=== PATIENT | male | born 1990 | race Caucasian/White ===

== ENCOUNTER 2017-04-28 15:19 | Emergency (ER) | payer SELFPAY ==
[~2017-04-28] VITALS: Ht 180.3 cm; Wt 74.0 kg
[2017-04-28 15:24] VITALS: BP 119/78; PULSE 72; RESP 14; TEMP 98.2; O2SAT 98
--- NOTE | 2017-04-28 15:47 | PD ---
HPI Chief Complaint: Psychiatric Symptoms Time Seen by Provider: 15:45 Travel History International Travel<30 days: No Contact w/Intl Traveler<30days: No Traveled to known affect area: No History of Present Illness HPI 27-year-old male presents to the emergency department for psychiatric evaluation. Patient presents voluntarily. He reports history of bipolar disorder, schizophrenia. He states he is not currently on any psychiatric medications. [place] He is currently homeless. He states he is hearing voices and having hallucinations. He states he has thoughts of hurting himself or thoughts of danger. He denies any definite plan of suicide. He has no homicidal ideation. Has no other complaints at this time. He reports no other chronic medical problems and takes no prescribed medications. He denies any history of illicit drug use. PFSH Past Medical History Bipolar Disorder: Yes Gastrointestinal Disorders: No Genitourinary: No Musculoskeletal: No Psychiatric: Yes (pt was under the care of Dr. Amado for 10yrs but stopped in 2014) Respiratory: No Schizophrenia: Yes Social History Alcohol Use: No Tobacco Use: Yes Substance Use: Yes Allergies-Medications (Allergen,Severity, Reaction): Coded Allergies: Ceclor (Verified Allergy, Mild, Hives, 02/17/16) Reported Meds & Prescriptions Reported Meds & Active Scripts Active No Active Prescriptions or Reported Medications Review of Systems Except as stated in HPI: all other systems reviewed are Neg Physical Exam Narrative GENERAL: Well-nourished, well-developed male patient, ambulatory. Afebrile. SKIN: Focused skin assessment warm/dry. HEAD: Normocephalic. Atraumatic. EYES: No scleral icterus. No injection or drainage. NECK: Supple, trachea midline. No JVD or lymphadenopathy. CARDIOVASCULAR: Regular rate and rhythm without murmurs, gallops, or rubs. RESPIRATORY: Breath sounds equal bilaterally. No accessory muscle use. Lungs sounds are clear to auscultation. GASTROINTESTINAL: Abdomen soft, non-tender, nondistended. MUSCULOSKELETAL: No cyanosis, or edema. PSYCHIATRIC: No delusional thought processes. No hallucinations. Data Data Last Documented VS Vital Signs Date Time Temp Pulse Resp B/P Pulse Ox O2 Delivery O2 Flow Rate FiO2 04/28/17 18:26 98.6 88 18 130/72 100 Orders Complete Blood Count With Diff (04/28/17 15:43) Comprehensive Metabolic Panel (04/28/17 15:43) Psych Screen (04/28/17 15:43) Drug Screen, Random Urine (04/28/17 15:43) Alcohol (Ethanol) (04/28/17 15:43) Potassium Chloride (Kcl) (04/28/17 16:45) Labs Laboratory Tests Test 04/28/17 15:55 White Blood Count 12.7 TH/MM3 Red Blood Count 4.58 MIL/MM3 Hemoglobin 13.5 GM/DL Hematocrit 40.2 % Mean Corpuscular Volume 87.8 FL Mean Corpuscular Hemoglobin 29.5 PG Mean Corpuscular Hemoglobin 33.6 % Concent Red Cell Distribution Width 12.9 % Platelet Count 200 TH/MM3 Mean Platelet Volume 9.4 FL Neutrophils (%) (Auto) 78.5 % Lymphocytes (%) (Auto) 13.1 % Monocytes (%) (Auto) 7.0 % Eosinophils (%) (Auto) 1.0 % Basophils (%) (Auto) 0.4 % Neutrophils # (Auto) 9.9 TH/MM3 Lymphocytes # (Auto) 1.7 TH/MM3 Monocytes # (Auto) 0.9 TH/MM3 Eosinophils # (Auto) 0.1 TH/MM3 Basophils # (Auto) 0.0 TH/MM3 CBC Comment DIFF FINAL Differential Comment Sodium Level 138 MEQ/L Potassium Level 3.0 MEQ/L Chloride Level 101 MEQ/L Carbon Dioxide Level 22.3 MEQ/L Anion Gap 15 MEQ/L Blood Urea Nitrogen 21 MG/DL Creatinine 0.86 MG/DL Estimat Glomerular Filtration 108 ML/MIN Rate Random Glucose 57 MG/DL Calcium Level 9.1 MG/DL Total Bilirubin 1.4 MG/DL Aspartate Amino Transf 50 U/L (AST/SGOT) Alanine Aminotransferase 30 U/L (ALT/SGPT) Alkaline Phosphatase 85 U/L Total Protein 7.5 GM/DL Albumin 4.8 GM/DL Urine Opiates Screen NEG Urine Barbiturates Screen NEG Urine Amphetamines Screen NEG Urine Benzodiazepines Screen NEG Urine Cocaine Screen NEG Urine Cannabinoids Screen NEG Ethyl Alcohol Level LESS THAN 3 MG/DL MDM Medical Decision Making Medical Screen Exam Complete: Yes Emergency Medical Condition: Yes Medical Record Reviewed: Yes Differential Diagnosis Bipolar disorder versus schizophrenia versus depression versus anxiety versus malingering Narrative Course 27-year-old male presents to the emergency department for psychiatric evaluation. He has no medical complaints at this time. CBC, CMP, alcohol level , urine drug screen are ordered and pending. CBC shows leukocytosis of 12.7, likely stress reaction. CMP shows hypokalemia at 3.0. Alcohol level is less than 3. UDS is negative. Patient is given potassium 40 meq po. The patient is medically cleared for psychiatric screening and disposition. Diagnosis Primary Impression: Schizophrenia Qualified Code: F20.9 - Schizophrenia, unspecified type Additional Instructions: Patient is medically cleared for psychiatric screening and disposition. Scripts No Active Prescriptions or Reported Meds Condition: Lorenza Torres Apr 28, 2017 15:47
[2017-04-28 16:07] LABS: AUTOMATED NEUTROPHIL # 9.9 TH/MM3 (1.8-7.7); BASOPHIL % 0.4 % (0.0-2.0); EOSINOPHIL # 0.1 TH/MM3 (0-0.4); HEMATOCRIT 40.2 % (39.0-51.0); HEMO FLAGS DIFF FINAL; LYMPH % 13.1 % (9.0-44.0); LYMPHOCYTE # 1.7 TH/MM3 (1.0-4.8); MEAN CELL VOLUME 87.8 FL (80.0-100.0); MEAN CORPUSCULAR HEMOGLOBIN 29.5 PG (27.0-34.0); MEAN CORPUSCULAR HGB CONC 33.6 % (32.0-36.0); NEUT % 78.5 % (16.0-70.0); PLATELET COUNT 200 TH/MM3 (150-450); RED BLOOD COUNT 4.58 MIL/MM3 (4.50-5.90); RED CELL DISTRIBUTION WIDTH 12.9 % (11.6-17.2); WHITE BLOOD COUNT 12.7 TH/MM3 (4.0-11.0)
[2017-04-28 16:18] LABS: AMPHETAMINE, URINE NEG (NEG); BARBITURATES, URINE NEG (NEG); COCAINE, URINE NEG (NEG)
[2017-04-28 16:34] LABS: ANION GAP 15 MEQ/L (5-15); BICARBONATE 22.3 MEQ/L (21.0-32.0); BLOOD UREA NITROGEN 21 MG/DL (7-18); CHLORIDE 101 MEQ/L (98-107); GLOMERULAR FILTRATION RATE 108 ML/MIN (>89); SODIUM (NA) 138 MEQ/L (136-145)
[2017-04-28 16:35] LABS: ALT (GPT) 30 U/L (12-78); AST (GOT) 50 U/L (15-37)
[2017-04-28 16:37] LABS: ALKALINE PHOSPHATASE 85 U/L (45-117); TOTAL BILIRUBIN ADULT 1.4 MG/DL (0.2-1.0)
[2017-04-28] MEDS ORDERED: POTASSIUM CHLORIDE 20 MEQ CONTROLLED RELEASE TAB PO ONE (16:45)
[2017-04-28 18:26] VITALS: BP 130/72; PULSE 88; RESP 18; TEMP 98.6; O2SAT 100
[2017-04-28 22:41] VITALS: BP 112/56; PULSE 76; RESP 18
[2017-04-29 02:11] VITALS: BP 108/56; PULSE 84; RESP 18; TEMP 99.5; O2SAT 98
[2017-04-29 06:15] VITALS: BP 116/73; PULSE 99; RESP 18; TEMP 99.1; O2SAT 99
== END 2017-04-29 08:38 | disposition home or self-care (01) ==
LOC: NEPD 15:19 → NEPJ 04-29 08:38
DX: F20.9 Schizophrenia, unspecified (principal)
CPT/HCPCS: 80053; 80307; 85025; 99283